=== PATIENT | female | born 1980 | race Caucasian/White ===

== ENCOUNTER → 2021-11-21 13:25 | Outpatient (BNVA) | payer OTHER, SELFPAY | PROVIDERS: Visit Provider Registered Nurse | DX: Z79.899 Other long term (current) drug therapy (principal) | CPT/HCPCS: 80053; 80061; 82306; 82607; 83036; 84443; 85025 ==

== ENCOUNTER 2024-04-23 10:10 | Emergency (ER) | payer SELFPAY ==
--- NOTE | 2024-04-23 10:14 | ECG_ITS ---
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
[2024-04-23 10:16] VITALS: BP 138/75; PULSE 87; RESP 16; TEMP 36.7; O2SAT 99; BMI 25.8
--- NOTE | 2024-04-23 10:17 | XR_ITS ---
WS: [id number] XR chest 1V portable [id number] REASON FOR EXAM: palpitations FINDINGS: The chest is unchanged compared to 04/23/2024. Mild tortuosity of the thoracic aorta with normal heart size. Calcified granulomatous disease in both hemithoraces. No acute pulmonary parenchymal or pleural abnormality. Mild thoracic spine scoliosis. XR/XR chest 1V portable [id number] IMPRESSION: Stable chest without acute abnormality.
--- NOTE | 2024-04-23 10:30 | ED_ITS ---
HPI - Arrhythmia/Palpitations 2 General: Chief Complaint: Arrhythmia/Palpitations Stated Complaint: irregular heart rate Time Seen by Provider: 04/23/24 10:22 Source: patient Mode of arrival: ambulatory Limitations: no limitations History of Present Illness: 43 yo female that states over the last 2 weeks she has been having irregular heart rates and has been having chest pains. She states the pains have beenright sided and has been a pressure pain. Has had some low heart rates and feeling lightheaded along with shortness of breath. Denies cough denies fever. Pt rates her pain a 3/10 currently. denies any hx of cad in the past. Associated symptoms: Deny nausea or vomiting Related Data Home Medications ?Medication ?Instructions ?Recorded ?Confirmed diclofenac sodium 75 mg 75 mg PO Q12H 04/23/2404/23 tablet,delayed release Allergies Allergy/AdvReac Type Severity Reaction Status Date / Time No Known Allergies Allergy Verified 11/14/21 14:32 Review of Systems 2 Const: Denies: fever(s), chills, body aches or change in appetite ENMT: Denies: throat pain or dental pain Card: Reports: chest pain and irregular heart rhythm Resp: Reports: dyspnea GI: Denies: abdominal pain, nausea, vomiting or diarrhea Musc: Denies: neck pain or back pain Skin/Breast: Denies: rash Neuro: Denies: headache(s) PFSH ED 2 PFSH: Medical History Insomnia Anxiety Mood disorder Methamphetamine dependence Physical Exam 2 Const: COMMON NORMALS: no acute distress, patient oriented x3 and healthy appearing HENMT: COMMON NORMALS: normocephalic and atraumatic HEAD & SCALP: n ormocephalic and atraumatic Eye: COMMON NORMALS: conjunctivae normal CONJUNCTIVA: Yes conjunctivae normal Neck/C-Spine: COMMON NORMALS: full ROM and supple Chest: COMMONS NORMALS: normal inspection of the chest and normal palpation of entire chest wall Resp: COMMON NORMALS: normal respiratory effort, No retractions, No use of accessory muscles and clear to auscultation bilaterally AUSCULTATION: clear to auscultation bilaterally Cardio: COMMON NORMALS: regular rate, regular rhythm and No murmurs present (Cardio) RATE: regular rate RHYTHM: regular rhythm GI: COMMON NORMALS: Normal to inspection, nondistended, normoactive bowel sounds present, Soft to palpation, non-tender and no masses PALPATION: Yes Soft to palpation Extremity: COMMON NORMALS: normal to inspection and full ROM Neuro: COMMON NORMALS: patient oriented x3, moves all extremities and no focal motor deficits Psych: COMMON NORMALS: mental status grossly normal, Normal thought process present and cooperative THOUGHT PROCESS: Normal thought process present Skin: COMMON NORMALS: no rashes or lesions noted and no wounds GENERAL SKIN EXAM: no rashes or lesions noted Course 2 Vital Signs: Vital signs: Vital Signs Temperature 98.0 F 04/23/24 10:16 Pulse Rate 87 04/23/24 10:16 Respiratory Rate 16 04/23/24 10:16 Blood Pressure 138/75 04/23/24 10:16 Pulse Oximetry 99 04/23/24 10:16 Oxygen Delivery Me thod Room Air 04/23/24 10:16 MDM - Arrhythmia/Palpitations Medical Decision Making 43-year-old female presented here with chest pain palpitations going on for the last 2 weeks initial repeat troponins D-dimer here are normal no signs of dissection or pulmonary embolism or ACS she has been well-appearing here with normal vitals she stable for discharge informed her she is to follow-up with her PCP in 2 to 4 days and return if worsening she understands agrees to plan. Medical Records I reviewed the patient's medical records. Lab Data I reviewed the patient's lab results. 04/23/24 10:53 04/23/24 10:53 Radiology Impressions Chest X-Ray 04/23/24 10:17 IMPRESSION: Stable chest without acute abnormality. Laboratory Results WBC 8.63 10^3/uL (3.29-11.43) 04/23/24 10:53 RBC 4.86 10^6/uL (3.85-5.65) 04/23/24 10:53 Hgb 15.00 g/dL (11.27-16.99) 04/23/24 10:53 Hct 46.5 % (36-47) 04/23/24 10:53 MCV 95.7 fl (85-98) 04/23/24 10:53 MCH 30.9 pg (27-33) 04/23/24 10:53 MCHC 32.3 g/dL (30-55) 04/23/24 10:53 RDW 12.7 % (12.1-15.1) 04/23/24 10:53 Plt Count 349 10^3/cmm (157-399) 04/23/24 10:53 MPV 10.4 fL (7.4-10.4) 04/23/24 10:53 Neut % (Auto) 51.1 % 04/23/24 10:53 Lymph % (Auto) 28.9 % 04/23/24 10:53 [place] % (Auto) 9.5 % 04/23/24 10:53 Eos % (Auto) 9.7 % 04/23/24 10:53 Baso % (Auto) 0.7 % 04/23/24 10:53 Neut # (Auto) 4.41 10^3/uL (1.8-7.7) 04/23/24 10:53 Lymph # (Auto) 2.5 10^3/uL (0.8-4.8) 04/23/24 10:53 [place] # (Auto) 0.8 10^3/uL (0.2-0.9) 04/23/24 10:53 Eos # (Auto) 0.8 10^3/uL (0.0-0.8) 04/23/24 10:53 Baso # (Auto) 0.1 10^3/uL (0.0-0.1) 04/23/24 10:53 Nucleated RBC % (auto) 0 % 04/23/24 10:53 Nucleated RBCs # 0.0 /100WBC 04/23/24 10:53 D-Dimer <= 0.27 ug/mLFEU (0-0.59) 04/23/24 12:40 Sodium 137 mmol/L (136-145) 04/23/24 10:53 Potassium 3.8 mmol/L (3.5-5.1) 04/23/24 10:53 Chloride 103 mmol/L (98-107) 04/23/24 10:53 Carbon Dioxide 20 mmol/L (22-29) L 04/23/24 10:53 Anion Gap 17.8 (5-19) 04/23/24 10:53 BUN 9 mg/dL (6-20) 04/23/24 10:53 Creatinine 0.8 mg/dL (0.5-0.9) 04/23/24 10:53 GFR Calculation 78.3 mL/min (90-130) L 04/23/24 10:53 Glucose 102 mg/dL (65-115) 04/23/24 10:53 Calculated Osmolality 283 mOsm/kg (285-295) L 04/23/24 10:53 Calcium 9.1 mg/dL (8.5-10.5) 04/23/24 10:53 Total Bilirubin 0.3 mg/dL (0.15-1.2) 04/23/24 10:53 AST 13 U/L (0-32) 04/23/24 10:53 ALT 14 U/L (0-33) 04/23/24 10:53 Alkaline Phosphatase 53 U/L (35-105) 04/23/24 10:53 Troponin T Baseline < 6 ng/L (0-10) 04/23/24 10:53 Troponin T 120 Minute 6.00 ng/L (0-10) 04/23/24 12:40 Delta Troponin T 0.35449 ABS# (0-10) 04/23/24 12:40 Total Protein 6.9 g/dL (6.6-8.7) 04/23/24 10:53 Albumin 4.0 g/dL (3.5-5.2) 04/23/24 10:53 Globulin 2.9 g/dL (1.3-4.6) 04/23/24 10:53 Lipase 33 U/L (13-60) 04/23/24 10:53 TSH 2.26 uIU/mL (0.27-4.20) 04/23/24 10:53 All radiology interpretation(s) finalized by discharge EKG Data EKG 1: I personally reviewed and interpreted this EKG as follows: EKG interpretation date: 04/23/24 EKG interpretation time: 10:14 Interpretation: nsr hr [address] elevation qrs 80 qtc 382 Other EKG comments: Chest X-Ray 04/23/24 10:17 IMPRESSION: Stable chest without acute abnormality. EKG 2: I personally reviewed and interpreted this EKG as follows: EKG interpretation date: 04/23/24 EKG interpretation time: 12:26 Interpretation: nsr hr [address] elevation qrs 90 qtc 404 Other EKG comments: Chest X-Ray 04/23/24 10:17 IMPRESSION: Stable chest without acute abnormality. Discharge Plan Discharge Patient Disposition: Home Clinical Impression: Chest pain Condition: Stable Prescriptions: No Action diclofenac sodium 75 mg tablet,delayed release (DR/EC) 75 mg PO Q12H Discharge Orders: Discharge ED (Routine); Ordered 04/23/24 Ordered By: Sudeep Segura Referrals: Nika Dorsey [Primary Care Provider] - 4-7 days Discharge Diet: Advance as tolerated Discharge Activity: Resume usual activity Patient Instructions: Chest Pain (ED) Stand Alone Forms: Work/School Release Print Language: Setswana Coding Level of Care Code ED Land Development Project Manager for Alexis Solis
[2024-04-23] MEDS: aspirin 81 mg Chew Tablet 324 MG PO (10:49)
[2024-04-23 10:57] LABS: Basophils # 0.1 10^3/uL (0.0-0.1); Basophils % 0.7 %; Eosinophils # 0.8 10^3/uL (0.0-0.8); Eosinophils % 9.7 %; Hematocrit 46.5 % (36-47); Lymphocytes # 2.5 10^3/uL (0.8-4.8); Lymphocytes % 28.9 %; Mean Corpuscular HGB Conc 32.3 g/dL (30-55); Mean Corpuscular Hemoglobin 30.9 pg (27-33); Mean Corpuscular Volume 95.7 fl (85-98); Mean Platelet Volume 10.4 fL (7.4-10.4); Monocytes # 0.8 10^3/uL (0.2-0.9); Monocytes % 9.5 %; Neutrophils # 4.41 10^3/uL (1.8-7.7); Neutrophils % 51.1 %; Nucleated Red Blood Cells % 0 %; Platelet Count 349 10^3/cmm (157-399); Red Blood Count 4.86 10^6/uL (3.85-5.65); Red Cell Distribution Width 12.7 % (12.1-15.1); White Blood Count 8.63 10^3/uL (3.29-11.43)
[2024-04-23 11:00] VITALS: BP 120/76; PULSE 77; RESP 19; O2SAT 97
[2024-04-23] MEDS: aspirin 81 mg Chew Tablet (11:09)
[2024-04-23 11:17] LABS: Troponin(5th) Baseline < 6 ng/L (0-10)
[2024-04-23 11:26] LABS: Alanine Aminotransferase 14 U/L (0-33); Alkaline Phosphatase 53 U/L (35-105); Aspartate Amino Transferase 13 U/L (0-32); Blood Urea Nitrogen 9 mg/dL (6-20); Calcium 9.1 mg/dL (8.5-10.5); Carbon Dioxide 20 mmol/L (22-29); Chloride 103 mmol/L (98-107); Creatinine Clr Calc Pharmacy 92.4843; Globulin 2.9 g/dL (1.3-4.6); Glomerular Filtration Rate 78.3 mL/min (90-130); Glucose 102 mg/dL (65-115); Lipase 33 U/L (13-60); Osmolality Calculated 283 mOsm/kg (285-295); Sodium 137 mmol/L (136-145); Thyroid Stimulating Hormone 2.26 uIU/mL (0.27-4.20); Total Bilirubin 0.3 mg/dL (0.15-1.2); Total Protein 6.9 g/dL (6.6-8.7)
[2024-04-23 11:27] LABS: Anion Gap 17.8 (5-19); Potassium 3.8 mmol/L (3.5-5.1)
[2024-04-23 11:30] VITALS: BP 117/71; PULSE 80; RESP 22; O2SAT 97
[2024-04-23 12:00] VITALS: BP 116/72; PULSE 71; RESP 21; O2SAT 100
--- NOTE | 2024-04-23 12:26 | ECG_ITS ---
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
[2024-04-23 12:30] VITALS: BP 118/83; PULSE 79; RESP 18; O2SAT 100
[2024-04-23 13:10] LABS: D Dimer <= 0.27 ug/mLFEU (0-0.59)
[2024-04-23 13:11] LABS: Troponin 5 2HR Delta 0.00001 ABS# (0-10)
[2024-04-23 13:30] VITALS: BP 120/73; PULSE 72; RESP 20; O2SAT 94
== END 2024-04-23 13:30 | disposition home or self-care (01) ==
PROVIDERS: Emergency Provider Emergency Medicine; PCP Nurse Practitioner Family
DX: R07.9 Chest pain, unspecified (principal)
CPT/HCPCS: 36415; 71045; 80053; 83690; 84443; 84484; 85025; 85378; 93005; 99285

== ENCOUNTER 2024-04-29 14:01 | Outpatient (CLI) | payer OTHER, SELFPAY ==
--- NOTE | 2024-04-29 14:21 | US_ITS ---
WS: [id number] BILATERAL 3D TOMOSYNTHESIS DIGITAL DIAGNOSTIC MAMMOGRAPHY WITH CAD CLINICAL INFORMATION: BREAST PAIN HISTORY: RIGHT bloody and then clear nipple discharge. COMPARISON: Baseline TECHNIQUE: Bilateral CC, MLO, and ML views. FINDINGS: The breasts are composed of heterogeneous fibroglandular density, which can limit the detection of small underlying mass lesions. Dense parenchymal tissue upper outer LEFT breast. Ultrasound is pending. No definite abnormalities in the subareolar RIGHT breast. Ultrasound subareolar RIGHT breast is pending. ULTRASOUND BREAST BILATERAL TECHNIQUE: Ultrasound bilateral breast focused area of concern. CLINICAL INFORMATION: BREAST PAIN COMPARISON: None. FINDINGS: RIGHT BREAST: Ultrasound subareolar RIGHT breast. Mild ductal ectasia. No cystic or solid lesions. No visualized intraductal lesions. LEFT BREAST: Ultrasound LEFT breast in the area of dense parenchymal tissue seen on the mammogram. Dense underlying parenchymal tissue is seen at the 12 o'clock position extending into the upper outer LEFT breast. No underlying parenchymal abnormalities. Findings are benign. US/US breast BI limited* [id number] IMPRESSION: DENSITY: The breasts are heterogeneously dense, which may obscure small masses. BI-RADS: 2 - Benign FOLLOW UP: 1 Year Follow-up Recommend return to annual screening mammography.
--- NOTE | 2024-04-29 14:24 | MM_ITS ---
WS: [id number] BILATERAL 3D TOMOSYNTHESIS DIGITAL DIAGNOSTIC MAMMOGRAPHY WITH CAD CLINICAL INFORMATION: BREAST PAIN HISTORY: RIGHT bloody and then clear nipple discharge. COMPARISON: Baseline TECHNIQUE: Bilateral CC, MLO, and ML views. FINDINGS: The breasts are composed of heterogeneous fibroglandular density, which can limit the detection of small underlying mass lesions. Dense parenchymal tissue upper outer LEFT breast. Ultrasound is pending. No definite abnormalities in the subareolar RIGHT breast. Ultrasound subareolar RIGHT breast is pending. ULTRASOUND BREAST BILATERAL TECHNIQUE: Ultrasound bilateral breast focused area of concern. CLINICAL INFORMATION: BREAST PAIN COMPARISON: None. FINDINGS: RIGHT BREAST: Ultrasound subareolar RIGHT breast. Mild ductal ectasia. No cystic or solid lesions. No visualized intraductal lesions. LEFT BREAST: Ultrasound LEFT breast in the area of dense parenchymal tissue seen on the mammogram. Dense underlying parenchymal tissue is seen at the 12 o'clock position extending into the upper outer LEFT breast. No underlying parenchymal abnormalities. Findings are benign. MM/MM diag BI tomosynthesis [id number] IMPRESSION: DENSITY: The breasts are heterogeneously dense, which may obscure small masses. BI-RADS: 2 - Benign FOLLOW UP: 1 Year Follow-up Recommend return to annual screening mammography.
== END 2024-04-29 14:02 | disposition home or self-care (01) ==
LOC: RAD 14:03
PROVIDERS: PCP Nurse Practitioner Family; Visit Provider Family Medicine
DX: N64.4 Mastodynia (principal); R92.333 Mammographic heterogeneous density, bilateral breasts; N60.41 Mammary duct ectasia of right breast; N63.21 Unspecified lump in the left breast, upper outer quadrant
CPT/HCPCS: 76642; 77062; G0279